=== PATIENT | male | born 1975 | race Caucasian/White ===

== ENCOUNTER 2023-02-19 09:47 | Emergency (ER) | payer OTHER, SELFPAY ==
--- NOTE | ~2023-02-19 | US_ITS ---
EXAMINATION: US venous doppler [facility] DATE: 02/19/2023 11:39 INDICATION: Bilateral lower limb swelling TECHNIQUE: Martinez scale images without and with compression and Doppler images of the bilateral lower e xtremity veins were obtained. COMPARISON: None FINDINGS: The right common femoral vein, profunda femoral vein, femoral vein, popliteal vein, peroneal trunk, p osterior tibial veins, and greater saphenous vein are patent. The left common femoral vein, profunda femoral vein, femoral vein, popliteal vein, peroneal trunk, po sterior tibial veins, and greater saphenous vein are patent. IMPRESSION: 1. Patent bilateral lower extremity veins. No evidence of deep venous thrombosis. Reviewed, dictated and finalized at location A. IMPRESSION: 1. Patent bilateral lower extremity veins. No evidence of deep venous thrombosi s.
[2023-02-19 09:50] VITALS: BP 102/70; PULSE 93; RESP 16; TEMP 36.5; O2SAT 100
--- NOTE | 2023-02-19 11:16 | ED.EXTPRO ---
HPI - Extremity Problem General Chief complaint: Extremity Problem,Nontraumatic Stated complaint: Bilateral Knee pain Time Seen by Provider: 02/19/23 11:03 History of Present Illness HPI Narrative: 48-year-old male here for evaluation of bilateral knee soreness past 24 hours. Patient states that his legs started to cramp up yesterday, noting it in his bilateral popliteal regions in his calf. He states that the cramping has progressed in severity since onset. He took a [place] yesterday with moderate relief of his symptoms. No obvious injury. He states the pain is actually better when he stands and has a slight bend in his knee, it is worse at rest. Denies significant swelling. No history of blood clots. Related Data Allergies Allergy/AdvReac Type Severity Reaction Status Date / Time No Known Allergies Allergy Verified 02/19/23 11:02 Review of Systems Review of Systems: Gen.: Denies fevers or chills Eyes: Denies eye pain or visual change ENT: Denies congestion Respiratory: Denies shortness of breath or cough CV: Denies chest pain or palpitations GI: Denies abdominal pain nausea, emesis or diarrhea denies burning, urgency, frequency or hematuria Musculoskeletal: Reports bilateral leg pain Neuro: Denies numbness, tingling, weakness or focal weakness Skin: Denies rash Except as documented, all other systems reviewed and negative Exam Narrative: APPEARANCE: Well appearing, no pain in distress, well-nourished. Head: Normocephalic and atraumatic. EYES: PERRLA/EOMI, conjunctivae clear NOSE: No nasal drainage EARS: External ear normal in appearance THROAT: Oropharynx is clear. Mucous membranes are moist. NECK: Supple. No adenopathy, no masses. RESPIRATORY: Airway patent, respirations nonlabored. Clear to auscultation bilaterally, no rales, rhonchi, wheezing. CARDIOVASCULAR: 2+ DP and PT pulses bilaterally. Feet are warm and well-perfused. Regular rate and rhythm without murmurs, rubs, or gallops. ABDOMINAL: Normoactive bowel sounds. Soft, nontender, nondistended. No rebound tenderness or guarding. MUSCULOSKELETAL: No bony tenderness to palpation along either patella. There is no soft tissue swelling of the knees. No tenderness in the popliteal region. No calf tenderness bilaterally. NEURO: Normal speech. No focal neurologic deficits. SKIN: There is a small erythematous scaly rash to the dorsal aspect of the left foot nontender to palpation, PSYCHIATRIC: Normal affect/mood.. Course Vital Signs Vital signs: Vital Signs Temperature 97.7 F 02/19/23 09:50 Pulse Rate 93 02/19/23 09:50 Respiratory Rate 16 02/19/23 09:50 Blood Pressure 102/70 02/19/23 09:50 Pulse Oximetry 100 02/19/23 09:50 Oxygen Delivery Room Air 02/19/23 09:50 Temperature 97.7 F 02/19/23 09:50 Pulse Rate 85 02/19/23 12:54 Respiratory Rate 18 02/19/23 12:54 Blood Pressure 114/74 02/19/23 12:54 Pulse Oximetry 99 02/19/23 12:54 Oxygen Delivery Room Air 02/19/23 09:50 MDM - Extremity (Nontraumatic) MDM Narrative Medical decision making narrative: 48-year-old male here for evaluation of atraumatic bilateral knee pain for the past day, worse at rest and better with movement. He is uncomfortable appearing, there is no bony tenderness to palpation of either knee, he has strong distal pulses, sensation intact throughout entirety of the extremity, possibly mild soft tissue swelling in the knees. Ultrasound negative for DVT. Basic labs are unremarkable, CK is normal. Patient feeling much improved after Toradol; likely rheumatoid versus osteoarthritis. I have low suspicion for fracture, dislocation, significant ligamentous injury, septic arthritis, gout flare, or gonococcal arthropathy. He will be discharged home to follow-up with orthopedics. We discussed return precautions and he voiced understanding. Lab Data 02/19/23 11:48 02/19/23 11:48 Labs: Lab Results 02/19/23 02/19/2302/05
[2023-02-19] MEDS: KETOROLAC 30 MG/ML VIAL (*BKC) IM (11:53)
[2023-02-19 12:15] LABS: Basophils Absolute Auto 0.1 K/mm3 (0.0-0.1); Basophils Percent Auto 0.4 % (0.2-1.2); Eosinophils Absolute Auto 0.1 K/mm3 (0-0.3); Eosinophils Percent Auto 0.4 % (0-4.4); Hematocrit 44.9 % (42.0-52.0); Hemoglobin 14.8 g/dL (14.0-18.0); Immature Granulocyte Absolute 0.03 K/mm3 (0.00-0.031); Immature Granulocyte Percent A 0.2 % (0-0.5); Lymphocytes Absolute Auto 2.86 K/mm3 (0.9-3.2); Lymphocytes Percent Auto 23.3 % (18.3-44.2); Mean Corpuscular Hemoglobin 31.4 pg (26-34); Mean Corpuscular Volume 95.1 fl (80-100); Mean Platelet Volume 9.5 fl (7.4-10.4); Monocytes Absolute Auto 0.6 K/mm3 (0.1-0.6); Monocytes Percent Auto 5.1 % (2.6-8.5); Neutrophils Absolute Auto 8.6 K/mm3 (1.3-6.7); Neutrophils Percent Auto 70.6 % (45.5-73.1); Platelet Count Result 288 k/mm3 (150-375); Red Blood Count 4.72 M/mm3 (4.6-6.20); Red Cell Distribution Width 12.9 % (11.5-14.5); White Blood Count 12.3 K/mm3 (4.5-10.0)
[2023-02-19 12:27] LABS: Prothrombin Time 12.9 Seconds (11.1-14.7)
[2023-02-19 12:28] LABS: Partial Thromboplastin Time 29.6 SECONDS (22.3-36.8)
[2023-02-19 12:31] LABS: Anion Gap 7 mmol/L (8-16); Blood Urea Nitrogen 16 mg/dL (9-20); Calcium 8.6 mg/dL (8.4-10.2); Carbon Dioxide 25 mmol/L (22-30); Chloride 108 mmol/L (98-107); Creatine Kinase 97 U/L (55-170); Estimated CRCL calculation 97 ml/min; Estimated Glomerular Filt Rate > 60; Glucose 100 mg/dL (65-110); Magnesium 2.2 mg/dL (1.6-2.3); Potassium 3.8 mmol/L (3.4-5.0); Sodium 140 mmol/L (137-145)
[2023-02-19 12:54] VITALS: BP 114/74; PULSE 85; RESP 18; O2SAT 99
== END 2023-02-19 12:55 | disposition home or self-care (01) ==
PROVIDERS: Emergency Provider Physician Assistant; PCP Nurse Practitioner Family
DX: M79.605 Pain in left leg (principal); M79.604 Pain in right leg
CPT/HCPCS: 36415; 80048; 82550; 83735; 85025; 85610; 85730; 93970; 96372; 99284; J1885